=== PATIENT | female | born 1980 | race Caucasian/White ===

== ENCOUNTER 2018-05-19 18:43 | Emergency (ER) | payer MEDICAID | END 2018-05-19 21:35 | disposition home or self-care (01) | LOC: FTE 18:43 | DX: K13.79 Other lesions of oral mucosa (principal) | CPT/HCPCS: 99283; Z7502 ==

== ENCOUNTER 2018-07-29 12:19 | Emergency (ER) | payer MEDICAID ==
[2018-07-29 14:49] LABS: ADD MAN DIFF? NO
[2018-07-29 14:56] LABS: BASOPHILS % 0.3 % (0.0-2.0); EOSINOPHILS # 0.1 10^3/ul (0.0-0.5); EOSINOPHILS % 2.3 % (0.0-7.0); HEMATOCRIT 32.7 % (37.0-47.0); HEMOGLOBIN 9.7 g/dl (12.0-16.0); LYMPHOCYTES # 2.1 10^3/ul (0.8-2.9); LYMPHOCYTES % 33.7 % (15.0-51.0); MEAN CORPUSCULAR HEMOGLOBIN 21.5 pg (29.0-33.0); MEAN CORPUSCULAR HGB CONC 29.7 g/dl (32.0-37.0); MEAN CORPUSCULAR VOLUME 72.3 fl (82.0-101.0); MEAN PLATELET VOLUME 9.2 fl (7.4-10.4); MONOCYTE # 0.3 10^3/ul (0.3-0.9); MONOCYTES % 5.5 % (0.0-11.0); NEUTROPHIL # 3.6 10^3/ul (1.6-7.5); NEUTROPHILS % 57.9 % (39.0-77.0); PLATELET COUNT 345 10^3/UL (140-415); RED BLOOD COUNT 4.52 10^6/ul (4.20-5.40)
[2018-07-29 14:56] LABS: WHITE BLOOD COUNT 6.2 10^3/ul (4.8-10.8)
[2018-07-29 15:01] LABS: ADD UMIC YES; UR ASCORBIC ACID NEGATIVE (NEGATIVE); UR BACTERIA FEW /HPF (NONE SEEN); UR BILIRUBIN (Dip) NEGATIVE (NEGATIVE); UR BLOOD (Dip) 3+ mg/dL (NEGATIVE); UR CLARITY SLIGHTLY CLOUDY (CLEAR); UR COLOR YELLOW (YELLOW); UR GLUCOSE (Dip) NEGATIVE (NEGATIVE); UR KETONES (Dip) NEGATIVE (NEGATIVE); UR LEUKOCYTE ESTERASE (Dip) NEGATIVE Leu/ul (NEGATIVE); UR MUCUS FEW /HPF (NONE SEEN); UR NITRITE (Dip) NEGATIVE (NEGATIVE); UR RBC 12 /HPF (0-5); UR SPECIFIC GRAVITY (Dip) 1.009 (1.003-1.030); UR SQUAMOUS EPITHELIAL CELL FEW /HPF (FEW); UR TOTAL PROTEIN (Dip) NEGATIVE (NEGATIVE); UR UROBILINOGEN (Dip) NEGATIVE (NEGATIVE); UR WBC 3 /HPF (0-5)
[2018-07-29 15:19] LABS: ANION GAP 8 (5-13); BLOOD UREA NITROGEN 8 mg/dl (7-20); CALCIUM 9.3 mg/dl (8.4-10.2); CARBON DIOXIDE 25 mmol/L (21-31); CHLORIDE 107 mmol/L (97-110); CREATININE 0.69 mg/dl (0.44-1.00); GLUCOSE 87 mg/dl (70-220); SODIUM 140 mmol/L (135-144)
[2018-07-29] MEDS: IBUPROFEN 600 MG TAB PO (15:55)
== END 2018-07-29 16:05 | disposition home or self-care (01) ==
LOC: FTE 16:05
DX: N93.8 Other specified abnormal uterine and vaginal bleeding (principal); R10.2 Pelvic and perineal pain
CPT/HCPCS: 36415; 76830; 76856; 80048; 81001; 81025; 85025; 86850; 86900; 86901; 99284-25

== ENCOUNTER 2018-11-10 08:36 | Emergency (ER) | payer MEDICAID ==
[2018-11-10] MEDS: KETOROLAC 60 MG INJ IM (10:10)
== END 2018-11-10 10:54 | disposition home or self-care (01) ==
LOC: FTE 08:36
DX: M54.5 Low back pain (principal); M25.572 Pain in left ankle and joints of left foot
CPT/HCPCS: 73610; 73630-LT; 81025; 96372; 99284-25